=== PATIENT | female | born 2000 | race Two or more races ===

== ENCOUNTER 2025-06-08 01:01 | Emergency (ER) | payer MEDICAID, SELFPAY ==
[2025-06-08 01:02] VITALS: BMI 23.3
[2025-06-08 01:17] VITALS: BP 133/90; PULSE 78; RESP 20; TEMP 36.9; O2SAT 98
--- NOTE | 2025-06-08 01:36 | PD.EDFMALE ---
ED Female Urogenital RME/HPI General Chief complaint: General Adult/Misc Complain Stated complaint: POSS RETAINED TAMPON Time Seen by Provider: 06/08/25 01:32 Arrival date/time: 06/08/25 01:01 25F with no significant PMH presents to ED with possibly retained tampon for 6 hours. Patient went to go take it out tonight and couldn't find anything. Patient couldn't remember if she took it out already. Patient denies symptoms including no pain or fevers/chills. Limitations: no limitations Related Data Home Medications ?Medication ?Instructions ?Recorded ?Confirmed albuterol 90 mcg/actuation aerosol 1 mcg inhalation PRN PRN 06/23/22 10/04/22 inhaler Bronchodilation Previous Rx's ?Medication ?Instructions ?Recorded ibuprofen 800 mg tablet 800 mg PO Q6H PRN pain #20 tabs 06/28/22 hydrocodone 5 mg-acetaminophen 325 1 tab PO Q6H #20 tabs 10/05/22 mg tablet ibuprofen 600 mg tablet 600 mg PO Q6H #30 tabs 06/01/24 Allergies Allergy/AdvReac Type Severity Reaction Status Date / Time No Known Allergies Allergy Verified 06/08/25 01:05 Review of Systems Review of Systems Systems Reviewed: All systems reviewed, normal except as documented Constitutional Constitutional: Reports system reviewed and no additional complaints, except as documented and Denies fever(s) Gastrointestinal Gastrointestinal: Reports system reviewed and no additional complaints, except as documented, Denies abdominal pain, Denies nausea and Denies vomiting Genitourinary Genitourinary: Reports as per HPI and Denies pelvic pain Past Medical History Past Medical History NEUROLOGIC: Negative Neurological Disorders or Seizures CARDIAC: Negative Cardiac Disorders or Congestive Heart Failure RESPIRATORY: Positive Asthma; Negative Chronic Obstructive Pulmonary Disease (COPD) GASTROINTESTINAL: Positive Gastrointestinal Disorders and Gall Bladder Disease; Negative Hepatitis or Colorectal Cancer GENITOURINARY: Positive Genitourinary Disorders; Negative Renal Disease REPRODUCTIVE: Negative Breast Cancer MUSCULOSKELETAL: Negative Musculoskeletal Disorders or Bone Cancer ENDOCRINE: Negative Endocrine Disorders, Diabetes Mellitus Type 1 or Diabetes Mellitus Type 2 HEMATOLOGIC: Positive Blood Disorders and Anemia OTHER HISTORY: Negative Hospitalization, Autoimmune Disease, Down Syndrome, Developmental Delay, Shingles, Falls, Blood Transfusions, Blood Transfusion Reaction, Anesthesia Reactions, Organ Transplant, Chemotherapy, Radiation Therapy, Hyperbaric Therapy, MRSA, VRSA, Vancomycin-Resistant Enterococci, Human Immunodeficiency Virus (HIV), Chicken Pox, Measles, Mumps, Rubella (Indonesian Measles), Pertussis, Clostridium Difficile, Cancer, Breast Cancer, Cervical Cancer, Colorectal Cancer, Lung Cancer or Ovarian Cancer Family History FAMILY HISTORY: Positive Family Psychiatric Problems, Family Respiratory Disorders, Family Cardiac Disorders and Family Surgery; Negative Family Gastrointestinal Problems, Family Cancer or Family Anesthesia Reaction Surgical History SURGICAL: Positive Section (1); Negative Organ Transplant Social History SMOKING STATUS: Never smoker SECOND HAND EXPOSURE: No ED Exam General Limitations: Present no limitations General appearance: Present alert and in no apparent distress Head Head exam: Present atraumatic Neck Neck exam: Present normal inspection, full ROM and trachea midline Chest Chest inspection: Present normal inspection and symmetric chest wall rise Speculum exam: Present normal speculum exam and vaginal bleeding (on period) Extremities Exam Extremities exam: Present tenderness, normal capillary refill and joint swelling Neurological Exam Neurological exam: Present alert, oriented X3 and CN II-XII intact Psychiatric Psychiatric exam: Present normal affect and normal mood Skin Skin exam: Present warm, dry, intact and normal color Course Quality Measures none Orders Category Date Time Status Sterile speculum examination ONCE Care 06/08/25 01:32 Active Vital Signs Vital signs: Vital Signs Temperature 98.4 F 06/08/25 01:17 Pulse Rate 78 06/08/25 01:17 Respiratory Rate 20 06/08/25 01:17 Blood Pressure 133/90 H 06/08/25 01:17 Pulse Oximetry (%) 98 06/08/25 01:17 Oxygen Delivery Method Room Air 06/08/25 01:17 O2 at 98% on RA and WNLs Urogenital - Female MDM Narrative MDM Narrative:: 25F with no significant PMH presents to ED with possibly retained tampon for 6 hours. Patient went to go take it out tonight and couldn't find anything. Patient couldn't remember if she took it out already. Patient denies symptoms including no pain or fevers/chills. Physical exam with special trackwork blacksmith Cosme person investigator reveals no FB on speculum exam. There is some blood, but patient confirms she's on her cycle. Patient is afebrile, calm, and alert. Diplomatic Interpreter/Translator given. Patient data External records reviewed:: [facility] previous records Clinical information provided by:: patient Social determinants that could affect healthcare access:: none Patient has the following chronic illnesses:: none How is presenting disease/condition affected by chronic disease/condition?: no chronic disease Evaluation data The following diagnostics were reviewed and interpreted by me:: other (specify) (none) Lab and/or radiology exams considered but not ordered:: not ordered Interpretation Summary: n/a Medications / Prescriptions Medications or Prescriptions considered but not ordered:: not ordered Medication administrations:: na/ Consultations Consultation(s) initiated? (list below): No Diagnosis Urogenital Female Differential Diagnosis: urinary tract infection, bacterial vaginosis, trichomoniasis, cervicitis, ovarian cyst, vaginitis, ruptured ovarian cyst, cyst of Bartholin's gland, cystitis, dysmenorrhea and other (visit for pelvic exam) Most likely diagnosis given after review of the tests above:: visit for pelvic exam Admission Indicated Admission indicated?: not indicated Admission Request Was there a request for admission?: No Disposition Plan Disposition Plan: Discharge Discharge Attestation Discharge Attestation: The patient and all family members were given an opportunity to ask questions and understood the discharge instructions. Discharge instructions specifically effects, indications for sooner follow up or return to the emergency department, and the expected course of current diagnosis. Patient condition: Stable Discharge Plan Plan Patient Disposition: HOME (Self Care) Discharge Disposition comment: Stable Prescriptions/Referrals Prescriptions/Med Rec: No Action ibuprofen 800 mg tablet 800 mg PO Q6H PRN (Reason: pain) Qty: 20 0RF albuterol 90 mcg/actuation Aerosol 1 mcg INHALATION PRN PRN (Reason: Bronchodilation) hydrocodone-acetaminophen 5-325 mg tablet 1 tab PO Q6H MDD 4 Qty: 20 0RF ibuprofen 600 mg tablet 600 mg PO Q6H Qty: 30 0RF Problem List Clinical Impression: Visit for pelvic exam Patient/Caregiver Discharge Instructions Additional Instructions: Please follow-up with PCP within 24-48 hours and return immediately if symptoms worsen. Print Language: Nepali Stand Alone Forms: Patient Portal Info Letter ANURAG/SHY Supervising Physician ANURAG/SHY Supervising Physician: Dr. Negrete
== END 2025-06-08 01:55 | disposition home or self-care (01) ==
LOC: SERX 02:51
PROVIDERS: Emergency Provider Emergency Medicine
DX: Z01.419 Encounter for gynecological examination (general) (routine) without abnormal findings (principal)
CPT/HCPCS: 99283

== ENCOUNTER 2025-06-15 21:25 | Emergency (ER) | payer MEDICAID, SELFPAY ==
[2025-06-15 21:26] VITALS: BMI 23.0
[2025-06-15 21:47] VITALS: BP 122/77; PULSE 115; RESP 18; TEMP 37.3; O2SAT 97
--- NOTE | 2025-06-15 22:02 | EDNOTE_ITS ---
Upper Respiratory Inf. RME/HPI General Chief Complaint: Dental/Oral/Throat Stated Complaint: SORE THROAT, COUGH Time Seen by Provider: 06/15/25 21:57 Arrival date/time: 06/15/25 21:25 25F with no significant PMH presents to ED with several days of cough and sore throat. Limitations: no limitations Related Data Home Medications ?Medication ?Instructions ?Recorded ?Confirmed albuterol 90 mcg/actuation aerosol 1 mcg inhalation NC N PRN 06/23/22 10/04/22 inhaler Bronchodilation Previous Rx's ?Medication ?Instructions ?Recorded ibuprofen 800 mg tablet 800 mg PO Q6H PRN pain #20 t abs 06/28/22 hydrocodone 5 mg-acetaminophen 325 1 tab PO Q6H #20 ta bs 10/05/22 mg tablet ibuprofen 600 mg tablet 600 mg PO Q6H #30 tabs 06/01 Allergies Allergy/AdvReac Type Severity Reaction Status Date / Time No Known Allergies Allergy Verified 06/08/25 01:05 Review of Systems Review of Systems Systems Reviewed: All systems reviewed, normal except as documented ENT Ears, Nose, Mouth, and Throat: Reports as per HPI and Reports sore throat Respiratory Respiratory: Reports as per HPI and Reports cough Past Medical History Past Medical History NEUROLOGIC: Negative Neurological Disorders or Seizures CARDIAC: Negative Cardiac Disorders or Congestive Heart Failure RESPIRATORY: Positive Asthma; Negative Chronic Obstructive Pulmonary Disease (COPD) GASTROINTESTINAL: Positive Gastrointestinal Disorders and Gall Bladder Disease; Negative Hepatitis or Colorectal Cancer GENITOURINARY: Positive Genitourinary Disorders; Negative Renal Disease REPRODUCTIVE: Negative Breast Cancer MUSCULOSKELETAL: Negative Musculoskeletal Disorders or Bone Cancer ENDOCRINE: Negative Endocrine Disorders, Diabetes Mellitus Type 1 or Diabetes Mellitus Type 2 HEMATOLOGIC: Positive Blood Disorders and Anemia OTHER HISTORY: Negative Hospitalization, Autoimmune Disease, Down Syndrome, Developmental Delay, Shingles, Falls, Blood Transfusions, Blood Transfusion Reaction, Anesthesia Reactions, Organ Transplant, Chemotherapy, Radiation Therapy, Hyperbaric Therapy, MRSA, VRSA, Vancomycin-Resistant Enterococci, Human Immunodeficiency Virus (HIV), Chicken Pox, Measles, Mumps, Rubella (Pashto Measles), Pertussis, Clostridium Difficile, Cancer, Breast Cancer, Cervical Cancer, Colorectal Cancer, Lung Cancer or Ovarian Cancer Family History FAMILY HISTORY: Positive Family Psychiatric Problems, Family Respiratory Disorders, Family Cardiac Disorders and Family Surgery; Negative Family Gastrointestinal Problems, Family Cancer or Family Anesthesia Reaction Surgical History SURGICAL: Positive Section (1); Negative Organ Transplant Social History SMOKING STATUS: Never smoker SECOND HAND EXPOSURE: No ED Exam General Limitations: Present no limitations General appearance: Present alert and in no apparent distress Head Head exam: Present atraumatic ENT ENT exam: Present normal exam, normal oropharynx and mucous membranes moist Neck Neck exam: Present normal inspection, full ROM and trachea midline Chest Chest inspection: Present normal inspection and symmetric chest wall rise Respiratory Respiratory exam: Present normal lung sounds bilaterally Extremities Exam Extremities exam: Present normal inspection and full ROM Neurological Exam Neurological exam: Present alert and oriented X3 Psychiatric Psychiatric exam: Present normal affect and normal mood Skin Skin exam: Present warm, dry, intact and normal color Course Quality Measures none Orders Category Date Time Status Bedside COVID-19 Antigen Test NOW Care 06/15/25 21:29 Completed Bedside Influenza A&B Antigen Test NOW Care 06/15/25 21:29 Completed Strep A Rapid Stat Lab 06/15/25 22:00 Completed Vital Signs Vital signs: Vital Signs Temperature 99.2 F 06/15/25 21:47 Pulse Rate 115 H 06/15/25 21:47 Respiratory Rate 18 06/15/25 21:47 Blood Pressure 122/77 06/15/25 21:47 Pulse Oximetry (%) 97 06/15/25 21:47 Oxygen Delivery Method Room Air 06/15/25 21:47 O2 at 97% on RA and WNLs Upper Respiratory Infection MDM Narrative MDM Narrative:: 25F with no significant PMH presents to ED with several days of cough and sore throat. Physical exam reveals clear oropharynx and lungs. Normal WOB. Patient is afebrile, calm, and alert. Swabs neg. Likely viral URI. Patient data External records reviewed:: [facility] previous records Clinical information provided by:: patient Social determinants that could affect healthcare access:: none Patient has the following chronic illnesses:: none How is presenting disease/condition affected by chronic disease/condition?: no chronic disease Evaluation data The following diagnostics were reviewed and interpreted by me:: lab results Lab and/or radiology exams considered but not ordered:: ordered Interpretation Summary: above Medications / Prescriptions Medications or Prescriptions considered but not ordered:: not ordered Medication administrations:: n/a Consultations Consultation(s) initiated? (list below): No Diagnosis Upper Respiratory Differential Diagnosis: upper respiratory infection, croup, ot itis media, sinusitis, viral infection, bronchitis, influenza and pharyngitis Most likely diagnosis given after review of the tests above:: URI Admission Indicated Admission indicated?: not indicated Admission Request Was there a request for admission?: No Disposition Plan Disposition Plan: Discharge Discharge Attestation Discharge Attestation: The patient and all family members were given an opportunity to ask questions and understood the discharge instructions. Discharge instructions specifically effects, indications for sooner follow up or return to the emergency department, and the expected course of current diagnosis. Patient condition: Stable Discharge Plan Plan Patient Disposition: HOME (Self Care) Discharge Disposition comment: Stable Prescriptions/Referrals Prescriptions/Med Rec: No Action ibuprofen 800 mg tablet 800 mg PO Q6H PRN (Reason: pain) Qty: 20 0RF albuterol 90 mcg/actuation Aerosol 1 mcg INHALATION PRN PRN (Reason: Bronchodilation) hydrocodone-acetaminophen 5-325 mg tablet 1 tab PO Q6H MDD 4 Qty: 20 0RF ibuprofen 600 mg tablet 600 mg PO Q6H Qty: 30 0RF Referrals: Antionette Ruiz PA-C [Primary Care Provider, Family Practice] - In 1 week Problem List Clinical Impression: URI (upper respiratory infection) Patient/Caregiver Discharge Instructions Education Materials: ED URI, Viral, No Abx (Adult) Additional Instructions: Please follow-up with PCP within 24-48 hours and return immediately if symptoms worsen. Ibuprofen/Tylenol can be used simultaneously for greater fever/pain control. Benadryl is good for cough, congestion, and sleep. Print Language: Russian Stand Alone Forms: Work/School Release, Patient Portal Info Letter CLAY Supervising Physician CLAY Supervising Physician: Dr. Chaparro
[2025-06-15 22:15] LABS: Strep A Rapid Negative (Negative)
== END 2025-06-15 22:32 | disposition home or self-care (01) ==
PROVIDERS: Physician Assistant; Emergency Provider Emergency Medicine; PCP Physician Assistant
DX: J06.9 Acute upper respiratory infection, unspecified (principal)
CPT/HCPCS: 87400; 87651; 87811; 99283

== ENCOUNTER 2025-09-15 09:19 | Emergency (ER) | payer MEDICAID, SELFPAY ==
--- NOTE | 2025-09-15 09:23 | XR_ITS ---
Examination: OB Transvaginal ultrasound of the pelvis, complete Technique: Transvaginal sonographic images pelvis performed using chris scale imaging Exam date and time: September 15, 2025, 10:40 a.m. INDICATION: Vaginal bleeding beginning 1 week ago FINDINGS: Uterus 8.4 cm endometrial stripe 0.2 cm No uterine mass Right ovary 2.3 cm arterial flow Left ovary 3.4 cm arterial flow IMPRESSION: Negative study.
[2025-09-15 10:11] VITALS: BP 121/81; PULSE 99; RESP 18; TEMP 36.6; O2SAT 99
[2025-09-15 10:32] LABS: Beta HCG,Quantitative 160 mIU/mL (<5.0)
--- NOTE | 2025-09-15 11:03 | EDNOTE_ITS ---
<Statement entered by Michelle Coffman MD - 09/30/25 17:52> As co-signing physician, I was present and available for consult prn. I concur with the plan and care as documented by the midlevel provider. ED Female Urogenital RME/HPI General Chief complaint: General Adult/Misc Complain Stated complaint: REPEAT BLOOD TEST FOR Time Seen by Provider: 09/15/25 09:22 Arrival date/time: 09/15/25 09:19 25-year-old female presents to the emergency department stating she was instruct ed return to the ER for reevaluation for hCG levels patient's last visit here in the emergency department was on 09/08 Limitations: no limitations Related Data Home Medications ?Medication ?Instructions ?Recorded ?Confirmed albuterol 90 mcg/actuation aerosol 1 mcg inhalation [place] N PRN 06/23/22 10/04/22 inhaler Bronchodilation Previous Rx's ?Medication ?Instructions ?Recorded ibuprofen 800 mg tablet 800 mg PO Q6H PRN pain #20 t abs 06/28/22 hydrocodone 5 mg-acetaminophen 325 1 tab PO Q6H #20 ta bs 10/05/22 mg tablet ibuprofen 600 mg tablet 600 mg PO Q6H #30 tabs 06/01 Allergies Allergy/AdvReac Type Severity Reaction Status Date / Time No Known Allergies Allergy Verified 09/15/25 09:23 Review of Systems Review of Systems Systems Reviewed: All systems reviewed, normal except as documented Constitutional Constitutional: Reports system reviewed and no additional complaints, except as documented, Denies fever(s) and Denies headache(s) Eyes Eyes: Reports system reviewed and no additional complaints, except as documented and Denies blurry vision ENT Ears, Nose, Mouth, and Throat: Reports system reviewed and no additional complaints, except as documented, Denies headache(s), Denies nasal congestion and Denies nasal discharge Cardiovascular Cardiovascular: Reports system reviewed and no additional complaints, except as documented, Denies chest pain and Denies dyspnea Respiratory Respiratory: Reports system reviewed and no additional complaints, except as documented, Denies chest congestion, Denies cough and Denies dyspnea Gastrointestinal Gastrointestinal: Reports system reviewed and no additional complaints, except as documented and Denies abdominal pain Integumentary/Breasts Skin/Breast: Reports system reviewed and no additional complaints, except as documented and Denies rash Neurologic Neurologic: Reports system reviewed and no additional complaints, except as documented, Reports as per HPI and Denies headache(s) Past Medical History Past Medical History NEUROLOGIC: Negative Neurological Disorders or Seizures CARDIAC: Negative Cardiac Disorders or Congestive Heart Failure RESPIRATORY: Positive Asthma; Negative Chronic Obstructive Pulmonary Disease (COPD) GASTROINTESTINAL: Positive Gastrointestinal Disorders and Gall Bladder Disease; Negative Hepatitis or Colorectal Cancer GENITOURINARY: Positive Genitourinary Disorders; Negative Renal Disease REPRODUCTIVE: Negative Breast Cancer MUSCULOSKELETAL: Negative Musculoskeletal Disorders or Bone Cancer ENDOCRINE: Negative Endocrine Disorders, Diabetes Mellitus Type 1 or Diabetes Mellitus Type 2 HEMATOLOGIC: Positive Blood Disorders and Anemia OTHER HISTORY: Negative Hospitalization, Autoimmune Disease, Down Syndrome, Developmental Delay, Shingles, Falls, Blood Transfusions, Blood Transfusion Reaction, Anesthesia Reactions, Organ Transplant, Chemotherapy, Radiation Therapy, Hyperbaric Therapy, MRSA, VRSA, Vancomycin-Resistant Enterococci, Human Immunodeficiency Virus (HIV), Chicken Pox, Measles, Mumps, Rubella (Thai Measles), Pertussis, Clostridium Difficile, Cancer, Breast Cancer, Cervical Cancer, Colorectal Cancer, Lung Cancer or Ovarian Cancer Family History FAMILY HISTORY: Positive Family Psychiatric Problems, Family Respiratory Disorders, Family Cardiac Disorders and Family Surgery; Negative Family Gastrointestinal Problems, Family Cancer or Family Anesthesia Reaction Surgical History SURGICAL: Positive Section (1); Negative Organ Transplant Social History SMOKING STATUS: Current every day smoker SECOND HAND EXPOSURE: No ED Exam General Limitations: Present no limitations General appearance: Present alert and in no apparent distress Head Head exam: Present atraumatic Eye Eye exam: Present normal appearance, PERRL and EOMI; Absent conjunctival injection ENT ENT exam: Present normal exam, normal oropharynx and mucous membranes moist Neck Neck exam: Present normal inspection, full ROM and trachea midline Chest Chest inspection: Present normal inspection and symmetric chest wall rise Respiratory Respiratory exam: Present normal lung sounds bilaterally; Absent respiratory distress Cardiovascular Cardiovascular exam: Present regular rate, normal rhythm and normal heart sounds Abdominal Exam Abdominal exam: Present soft and normal bowel sounds; Absent distention, tenderness, guarding, rebound or rigidity Extremities Exam Extremities exam: Present normal inspection and full ROM Back Exam Back exam: Present normal inspection and full ROM Neurological Exam Neurological exam: Present alert, oriented X3 and CN II-XII intact Psychiatric Psychiatric exam: Present normal affect and normal mood Skin Skin exam: Present warm, dry, intact and normal color Course Quality Measures none Orders Category Date Time Status US OB transvaginal Stat Exams 09/15/25 09:23 Completed Beta HCG,Quantitative Stat Lab 09/15/25 09:57 Completed Vital Signs Vital signs: Vital Signs Temperature 97.9 F 09/15/25 10:11 Pulse Rate 99 09/15/25 10:11 Respiratory Rate 18 09/15/25 10:11 Blood Pressure 121/81 09/15/25 10:11 Pulse Oximetry (%) 99 09/15/25 10:11 Oxygen Delivery Method Room Air 09/15/25 10:11 O2 saturation 99% room air within normal limits Urogenital - Female MDM Narrative MDM Narrative:: 25-year-old female presents to the emergency department stating she was instructed return to the ER for reevaluation for hCG levels patient's last visit here in the emergency department was on 09/08 On exam patient well-appearing does not appear look toxic no acute distress Lab work and imaging obtained Patient discharged home in no distress to follow-up with primary care doctor in the next 24 to 48 hours and for any worsening symptoms to return to the ER immediately Patient data External records reviewed:: [facility] previous records Clinical information provided by:: patient Social determinants that could affect healthcare access:: none Patient has the following chronic illnesses:: none How is presenting disease/condition affected by chronic disease/condition?: no chronic disease Evaluation data The following diagnostics were reviewed and interpreted by me:: lab results and radiology exam(s) Lab and/or radiology exams considered but not ordered:: Labs radiology obtained Interpretation Summary: Reviewed by me Medications / Prescriptions Medications or Prescriptions considered but not ordered:: Given Medication administrations:: Given Consultations Consultation(s) initiated? (list below): No Diagnosis Urogenital Female Differential Diagnosis: other (Missed , threatened ) Most likely diagnosis given after review of the tests above:: missed Admission Indicated Admission indicated?: not indicated Explain why admission is indicated or not indicated:: Criteria Admission Request Was there a request for admission?: No Disposition Plan Disposition Plan: Discharge Discharge Attestation Discharge Attestation: The patient and all family members were given an opportunity to ask questions and understood the discharge instructions. Discharge instructions specifically effects, indications for sooner follow up or return to the emergency department, and the expected course of current diagnosis. Patient condition: Stable Discharge Plan Plan Patient Disposition: HOME (Self Care) Discharge Disposition comment: Stable Prescriptions/Referrals Prescriptions/Med Rec: No Action ibuprofen 800 mg tablet 800 mg PO Q6H PRN (Reason: pain) Qty: 20 0RF albuterol 90 mcg/actuation Aerosol 1 mcg INHALATION PRN PRN (Reason: Bronchodilation) hydrocodone-acetaminophen 5-325 mg tablet 1 tab PO Q6H MDD 4 Qty: 20 0RF ibuprofen 600 mg tablet 600 mg PO Q6H Qty: 30 0RF Referrals: Antionette Ruiz PA-C [Primary Care Provider, Family Practice] - In 1 week Problem List Clinical Impression: , missed Patient/Caregiver Discharge Instructions Education Materials: ED Missed Miscarriage Additional Instructions: Please follow-up with WIDE PIECE GOODS INSPECTOR as discussed worsening symptoms or concerns return immediately On 09/08 your hCG level was 2625 today your hCG level is 160 Print Language: Tamazight Stand Alone Forms: Alley Award Info., Patient Portal Info Letter PA/POWER BARKER OPERATOR Supervising Physician PA/POWER BARKER OPERATOR Supervising Physician: Dr. coffman
== END 2025-09-15 13:34 | disposition home or self-care (01) ==
PROVIDERS: Nurse Practitioner Primary Care; Emergency Provider Emergency Medicine; PCP Physician Assistant
DX: O02.1 Missed abortion (principal)
CPT/HCPCS: 36415; 76817; 84702; 99282